=== PATIENT | female | born 1950 | race Caucasian/White ===

== ENCOUNTER 2016-03-24 11:26 | Outpatient (CLI) | payer MEDICARE, BC ==
[2012-05-16 11:11] VITALS: BP 126/74
[2016-03-24 12:04] LABS: BASOPHILS % 0.3 (0.0-1.5); EOSINOPHILS % 2.5 % (0.0-6.8); MEAN CORPUSCULAR HEMOGLOBIN 30.7 pg (28.0-34.0); MONOCYTES # 0.2 # k/uL (0.0-0.9); MONOCYTES % 3.6 % (0.0-11.0); NEUTROPHILS # 4.1 # k/uL (1.4-7.7)
--- NOTE | 2016-03-24 15:00 | Diagnostic Imaging Report ---
[facility] [address] [facility].[address] [address] Report Submission Date: Mar 24, 2016 1:05:51 PM BUILDING CONSULTANT Patient Study Name: FELIX BISWAS Date: Mar 24, 2016 11:57:41 AM BUILDING CONSULTANT Modality Type: CR Gender: F Description: PELVIS : 48 Institution: [facility] Physician PEDRO NAVARRO - OP AP pelvis HISTORY: Pain after fall FINDINGS: Atherosclerotic calcifications are observed. The osseous pelvis is otherwise intact without fracture, dislocation, arthropathy, or focal bone lesion. Electronically signed on Mar 24, 2016 1:05:51 PM BUILDING CONSULTANT by: Ezio ALCOCER
[2016-03-24 22:11] LABS: TOTAL PROTEIN 7.2 g/dL (6.0-8.5)
== END 2016-03-24 11:30 ==
LOC: LAB 11:26
PROVIDERS: ATTEND Family Medicine
DX: M25.552 Pain in left hip (principal); W19.XXXS Unspecified fall, sequela; E78.2 Mixed hyperlipidemia; E11.9 Type 2 diabetes mellitus without complications; E03.9 Hypothyroidism, unspecified; R30.0 Dysuria
CPT/HCPCS: 36415; 72170; 80053; 80061; 83036; 84443; 85025; 87088; 87186

== ENCOUNTER 2016-05-21 10:01 | Outpatient (CLI) | payer MEDICARE, BC ==
[2012-05-16 11:11] VITALS: BP 126/74
[2016-05-21 10:24] LABS: BASOPHILS % 0.3 (0.0-1.5); EOSINOPHILS % 0.4 % (0.0-6.8); LYMPHOCYTES # 0.6 # k/uL (0.6-4.0); MEAN CORPUSCULAR HEMOGLOBIN 31.8 pg (28.0-34.0); MONOCYTES # 0.3 # k/uL (0.0-0.9); MONOCYTES % 3.1 % (0.0-11.0); NEUTROPHILS # 9.2 # k/uL (1.4-7.7)
== END 2016-05-21 10:02 ==
LOC: LAB 10:01
PROVIDERS: ATTEND Family Medicine
DX: D50.9 Iron deficiency anemia, unspecified (principal)
CPT/HCPCS: 36415; 85025

== ENCOUNTER 2016-06-16 11:30 | Outpatient (CLI) | payer MEDICARE, BC ==
[2012-05-16 11:11] VITALS: BP 126/74
== END 2016-06-16 11:32 ==
LOC: LAB 11:30
PROVIDERS: ATTEND Family Medicine
DX: R30.0 Dysuria (principal)
CPT/HCPCS: 87086; 87186

== ENCOUNTER 2017-06-22 09:38 | Outpatient (CLI) | payer MEDICARE, BC ==
[2012-05-16 11:11] VITALS: BP 126/74
[2017-06-22 10:43] LABS: eGFR (Non-African) 37
[2017-06-22 10:49] LABS: MEAN CORPUSCULAR HEMOGLOBIN 31.2 pg (28.0-34.0); MEAN CORPUSCULAR VOLUME 92.4 fl (80.0-100.0)
--- NOTE | 2017-06-22 12:46 | Diagnostic Imaging Report ---
Report Submission Date: Jun 22, 2017 12:05:04 PM CDT Patient Study Name: FELIX BISWAS Date: Jun 22, 2017 10:54:02 AM CDT Modality Type: CT\SR Gender: F Description: CT ABD PELVIS W/O CO : 48 Institution: [facility] Physician: PEDRO NAVARRO - LEANA Examination: CT Abdomen/pelvis History: PT C/O ABDOMEN PAIN FOR ABOUT 2-3 WEEKS. (Hx) Comparison exams: None available Technique: CT Abdomen/pelvis without IV protocol. Findings: Liver, spleen, adrenals, pancreas, and kidneys are without gross irregularity given exam technique. Few splenic granuloma. Gallbladder not visualized. No suspicious renal calcifications. Ureters are nondilated in their course through the abdomen and pelvis. No central calcifications. Bladder margin within normal limits. Abdominal aorta without aneurysm. Scattered peripheral atherosclerotic disease. Cardiac silhouette is not enlarged. No pericardial effusion. Bowel unopacified limiting evaluation. No abnormal dilation. Stool within the large bowel limiting sensitivity. No mesenteric inflammatory changes or free fluid. Appendix not visualized. Hiatal hernia. Thickened distal esophagus. Osseous structures demonstrate scattered degenerative spurring. Lung bases without infiltrate. No effusion. Impression: No abdominal mass or acute inflammatory process. No abnormal bowel dilation or inflammation. Moderate stool throughout the large bowel - constipation. Hiatal hernia. Thickened distal esophagus - evaluate as warranted No suspicious renal calcifications or abnormal ureteric dilation. No lung base consolidation or effusion. Electronically signed on Jun 22, 2017 12:05:04 PM CDT by: Dimitri ALCOCER
== END 2017-06-22 09:40 ==
LOC: LAB 09:38
PROVIDERS: ATTEND Family Medicine
DX: R10.32 Left lower quadrant pain (principal); D64.9 Anemia, unspecified; E11.8 Type 2 diabetes mellitus with unspecified complications
CPT/HCPCS: 36415; 74176; 80048; 83036; 85027

== ENCOUNTER 2018-04-13 11:30 | Outpatient (CLI) | payer MEDICARE, BC ==
[2012-05-16 11:11] VITALS: BP 126/74
[2018-04-13 11:56] LABS: MEAN CORPUSCULAR HEMOGLOBIN 30.3 pg (28.0-34.0)
[2018-04-13 11:57] LABS: BASOPHILS % 0.4 (0.0-1.5); EOSINOPHILS % 2.8 % (0.0-6.8); MONOCYTES % 3.8 % (0.0-11.0); NEUTROPHILS # 5.2 # k/uL (1.4-7.7)
== END 2018-04-13 11:33 ==
LOC: LAB 11:30
PROVIDERS: ATTEND Family Medicine
DX: D50.9 Iron deficiency anemia, unspecified (principal)
CPT/HCPCS: 36415; 82728; 83540; 83550; 85025

== ENCOUNTER 2018-11-08 14:17 | Inpatient (IN) | payer MEDICARE, BC ==
[2018-11-08] MEDS ORDERED: 0.9 % SODIUM CHLORIDE 1,000 ML IV ONE ×2 (14:38→14:39)
[2018-11-08] MEDS ORDERED: ONDANSETRON HCL/PF 4 MG/ 2ML VIAL IVP ONE (14:39)
[2018-11-08 14:50] LABS: BASOPHILS % 0.3 % (0.0-1.5); NEUTROPHILS # 5.4 # k/uL (1.4-7.7)
[2018-11-08 15:00] LABS: eGFR (Non-African) 14
--- NOTE | 2018-11-08 15:00 | ED Physician Documentation ---
Nausea/Vomiting/Diarrhea - HISTORIAN Historian: patient - HPI Chief Complaint: General Adult Additional Information: Patient is a 68 year old female who presents to the ER with c/o not feeling well. Patient states sx's started 4 days ago (Wednesday)- she was at a [employer] retreat; after lunch she developed some chills; went home and slept; fever went up to 102. Yesterday she did not have fever but had 4 episodes of diarrhea; today she denies any fever, vomiting or diarrhea; today she just feels dizzy from dehydration. Onset: days ago Duration: gradual Timing: gradual onset, still present Context: denies: out of country travel, bad food Severity: moderate - Associated Symptoms Diarrhea: watery Abdominal Pain: none - ROS CONST: recent illness (started 4 days ago with fever), fever, chills (started 4 days ago; afebrile > 24 hours) CVS/RESP: denies: chest pain, shortness of breath, cough GI/: dark urine (has only voided a couple of times in 24 hours) EYES/ENT: none MS/SKIN/LYMPH: denies: rash NEURO/PSYCH: headache (frontal) - PAST HX Past History: diabetes Type 2 (with insulin), other (anemia) Other History: hypertension, other (hypothyroid) Surgeries/Procedures: cholecystectomy, hysterectomy, other (MRSA to the neck, tonsillectomy, D&C) Immunizations: UTD Allergies/Adverse Reactions: Allergies Allergy/AdvReac Type Severity Reaction Status Date / Time morphine Allergy Verified 11/08/18 16:23 - SOCIAL HX Smoking History: non-smoker Alcohol Use: none Drug Use: none - FAMILY HX Family History: none - VITAL SIGNS Vital Signs: Vital Signs Temp Pulse Resp BP Pulse Ox 96.9 F L 88 16 109/70 96 11/08/18 16:26 11/08/18 16:46 11/08/18 16:46 11/08/18 16:46 11/08/18 16:46 - REVIEWED ASSESSMENTS Nursing Assessment Reviewed: Yes Vitals Reviewed: Yes Progress - Progress Progress: 16:10 Dr. Montes in to see patient; accepted inpatient admission 16:50 Patient has not yet voided; report to [facility] to collect urine ED Results Lab/Radiology - Lab Results Lab Results: Lab Results 11/08/18 11/08/18 14:48 14:48 WBC 8.60 K/ul K/ul (4.00-12.00) RBC 2.96 M/ul L M/ul (3.90-5.20) Hgb 9.2 g/dL L g/dL (11.5-16.0) Hct 26.7 % L % (34.5-46.5) MCV 90.0 fl fl (80.0-100.0) MCH 31.0 pg pg (28.0-34.0) MCHC 34.3 g/dL g/dL (30.0-36.0) RDW 12.3 % % (11.3-14.3) Plt Count 312 K/mm3 K/mm3 (130-400) Neut % (Auto) 62.9 % % (39.0-79.0) Lymph % (Auto) 23.9 % % (16.0-50.0) [place] % (Auto) 10.5 % % (0.0-11.0) Eos % (Auto) 2.4 % % (0.0-6.8) Baso % (Auto) 0.3 % % (0.0-1.5) Neut # (Auto) 5.4 # k/uL # k/uL (1.4-7.7) Lymph # (Auto) 2.1 # k/uL # k/uL (0.6-4.0) [place] # (Auto) 0.9 # k/uL # k/uL (0.0-0.9) Eos # (Auto) 0.2 # k/uL # k/uL (0.0-0.6) Baso # (Auto) 0.0 # k/uL # k/uL (0.0-0.5) Sodium 138 mmol/L mmol/L (137-145) Potassium 3.9 mmol/L mmol/L (3.5-5.1) Chloride 96 mmol/L L mmol/L (98-107) Carbon Dioxide 26 mmol/L mmol/L (22-30) Anion Gap 19.9 BUN 52 mg/dL H mg/dL (7-17) Creatinine 3.48 mg/dL H mg/dL (0.52-1.04) Est GFR ( Amer) 17 L (60 - ) Est GFR (Non-Af Amer) 14 L (60 - ) Glucose 57 mg/dL L mg/dL (74-106) Calcium 8.2 mg/dL L mg/dL (8.4-10.2) Total Bilirubin 0.5 mg/dL mg/dL (0.2-1.3) AST 78 U/L H U/L (15-46) ALT 38 U/L U/L (13-69) Alkaline Phosphatase 96 U/L U/L (38-126) Total Protein 7.9 g/dL g/dL (6.3-8.2) Albumin 4.0 g/dL g/dL (3.5-5.0) Lipase 295 U/L U/L (23-300) - Orders Orders: ED Orders Category Date Time Status Place IV Lock 1T Care 11/08/18 14:39 Active CBC/PLATELET/DIFF Routine Lab 11/08/18 14:48 Completed CMP Routine Lab 11/08/18 14:48 Completed LIPASE Stat Lab 11/08/18 14:48 Completed URINALYSIS Routine Lab 11/08/18 14:39 Ordered 0.9 % Sodium Chloride [Normal Saline] 1,000 ml Med 11/08/18 14:38 Discontinued IV .STK-MED 0.9 % Sodium Chloride [Normal Saline] 1,000 ml Med 11/08/18 14:39 Discontinued IV Q1H Chem Sticks Med 11/08/18 14:40 Discontinued 1 each MC NOW ONE Ondansetron HCl/Pf [Zofran] Med 11/08/18 14:39 Discontinued 4 mg IVP NOW ONE Nausea Physical Exam - EXAM General Appearance: mild distress (weakness) EENT: eye inspection normal, ENT inspection normal, pharynx normal, NAUN, dry mucous membranes Neck: supple Respiratory: breath sounds normal CVS: heart sounds normal, tachycardia Abdomen: tenderness (mild tenderness ) Back: non-tender Skin: warm/dry, pallor Extremities: non-tender, normal range of motion Neuro/Psych: oriented X3, CN's nml as tested, motor nml, sensation nml, mood/affect nml, cognition normal, other (weakness, dizziness with position changes) Discharge Clincal Impression: Acute renal failure, Dehydration symptoms, Hypoglycemia Condition: Stable Disposition: ADMITTED INPATIENT Decision to Admit: [id number] Decision Time: 16:45
[2018-11-08] MEDS ORDERED: ONDANSETRON HCL/PF 4 MG/ 2ML VIAL IVP PRN (16:34)
--- NOTE | 2018-11-08 16:34 | History and Physical Report ---
History of Present Illnes - History of Present Illness Reason for Visit: Weakness History of Present Illness: Patient presented to the ER with weakness. 4 days ago she got chills and fatigue. Developed 102 temp. The next day started have profuse diarrhea - 4-5 episodes. No vomiting. Fever resolved. now with diarrhea. Today patient noted feeling weak and light headed. In the ER patient found to have CR 3.4 (baseline a month ago 1.7) and BS 57. She has a h/o IDDM - A1C last month was 9.9. She has been unable to eat much or drink much. Had 2 fish strips last night then now in ER had a chicken sandwich. - Past Medical History Cardiac: HTN Gastrointestinal: Other (GAstroparesis) Heme/Onc: Iron deficiency anemia (recently worked up by Hematology - secondary to CRF) Renal/: Chronic renal insuff, Acute renal failure Endocrine: Diabetes (with retinopathy) - Past Surgical History Past Surgical History: Cholecystectomy, Hysterectomy (with BSO) - Past Social History Smoke: No Alcohol: None Drugs: None Lives: With Family - Health Maintenance Health Maintenance: Influenza Vaccine, Pneumococcal Vaccine, Mammogram, Colonoscopy Influenza Vaccine: Current for this Influenza Season Pneumonia Vaccine: Yes Resuscitation Status: full Review of Systems - Review of Systems Constitutional: Fever, Chills, Weakness Eyes: negative: pain ENT: negative: Ear Pain, Nose Pain, Nose Discharge Respiratory: negative: Cough, Shortness of Breath Cardiovascular: negative: Chest Pain Gastrointestinal: Nausea, Diarrhea. negative: Vomiting, Abdominal Pain, Melena Genitourinary: negative: Dysuria, Frequency, Incontinence Musculoskeletal: negative: Back Pain Skin: negative: Rash Neurological: Weakness - Medications/Allergies Allergies/Adverse Reactions: Allergies Allergy/AdvReac Type Severity Reaction Status Date / Time morphine Allergy Verified 11/08/18 16:23 Exam - Exam Vital Signs: Vital Signs (72 hours) 11/08/18 16:26 Temperature 96.9 F L Pulse Rate [ 76 Right Pulse ox] Respiratory 18 Rate Blood Pressure 80/55 [Left Arm] O2 Sat by Pulse 98 Oximetry General: Alert, Oriented to Person, Oriented to Place, Oriented to Time, Cooperative, No acute distress HEENT: Atraumatic, PERRLA, EOMI. No: Mouth Mucous membr. moist/[place] Neck: Normal Range of Motion Lungs: Clear to auscultation, Normal air movement, Speaks full Sentences Cardiovascular: Regular rate Abdomen: Normal bowel sounds, Soft, No tenderness Integumentary: Decreased Turgor Extremities: No edema Neurological: Generalized Weakness Psych/Mental Status: Mental status NL, Mood NL, Appropriate Affect, Intact Judgment - Laboratory Results Laboratory Results: Laboratory Results 11/08/18 11/08/18 14:48 14:48 WBC 8.60 RBC 2.96 L Hgb 9.2 L Hct 26.7 L MCV 90.0 MCH 31.0 MCHC 34.3 RDW 12.3 Plt Count 312 Neut % (Auto) 62.9 Lymph % (Auto) 23.9 [place] % (Auto) 10.5 Eos % (Auto) 2.4 Baso % (Auto) 0.3 Neut # (Auto) 5.4 Lymph # (Auto) 2.1 [place] # (Auto) 0.9 Eos # (Auto) 0.2 Baso # (Auto) 0.0 Sodium 138 Potassium 3.9 Chloride 96 L Carbon Dioxide 26 Anion Gap 19.9 BUN 52 H Creatinine 3.48 H Est GFR ( Amer) 17 L Est GFR (Non-Af Amer) 14 L Glucose 57 L Calcium 8.2 L Total Bilirubin 0.5 AST 78 H ALT 38 Alkaline Phosphatase 96 Total Protein 7.9 Albumin 4.0 Lipase 295 Assessment/Plan - Assessment/Plan (1) Diabetes mellitus Status: Acute Current Visit: Yes Qualifiers: Diabetes mellitus type: type 2 Diabetes mellitus ferry terminal agent insulin use: without penitentiary use Diabetes mellitus complication status: with ophthalmic complications Diabetes mellitus complication detail: with diabetic retinopathy Diabetic retinopathy severity: with unspecified retinopathy severity Diabetes mellitus macular edema: macular edema presence unspecified Laterality: unspecified laterality Qualified Code(s): E11.319 - Type 2 diabetes mellitus with unspecified diabetic retinopathy without macular edema Plan: Hold insulin for now due to hypoglycemia. Will give D5 1/2 NS for first liter until good oral intake. (2) Gastroenteritis Status: Acute Current Visit: Yes Plan: Seems resolved. Push diet. (3) Acute renal failure Status: Acute Current Visit: Yes Qualifiers: Acute renal failure type: unspecified Qualified Code(s): N17.9 - Acute kidney failure, unspecified (4) Dehydration symptoms Status: Acute Current Visit: Yes Plan: Suspect due to dehydration from her illness. Hydrate with IVF. Watch for Cr to return to baseline. (5) Hypoglycemia Status: Acute Current Visit: Yes Plan: Accuchecks but hold diabetic meds. VTE Assessment - RISK FACTOR SCORE VTE RISK FACTOR SCORES: AGE OVER 60 YEARS - RISK VTE LOW RISK: SCORE OF 1 OR LESS (RISK PROXIMAL DVT 0.4%) NO PROPHYLAXIS NEEDED
[2018-11-08] MEDS ORDERED: DEXTROSE 5 %-0.45 % SOD CHLORD 1,000 ML IV SCH ×2 (17:00→21:14)
[2018-11-08] MEDS: PANTOPRAZOLE SODIUM 40 MG in SODIUM CHLORIDE 0.9 % (FLUSH) 10 ML IVP SCH (17:40)
[2018-11-08 18:11] VITALS: BMI 37.5
[2018-11-08] MEDS: GABAPENTIN 300 MG CAPSULE PO SCH (21:10)
[2018-11-08] MEDS: FERROUS SULFATE 325 MG TABLET PO SCH (21:10)
[2018-11-09] MEDS ORDERED: ACETAMINOPHEN 500 MG TABLET PO PRN (02:11)
[2018-11-09] MEDS: PANTOPRAZOLE SODIUM 40 MG in SODIUM CHLORIDE 0.9 % (FLUSH) 10 ML IVP SCH ×2 (06:22→16:43)
[2018-11-09] MEDS: LEVOTHYROXINE SODIUM 50 MCG TABLET PO SCH (06:22)
[2018-11-09 06:35] LABS: APPEARANCE,URINE CLEAR (CLEAR); COLOR,URINE YELLOW (YELLOW); OCCULT BLOOD,URINE 1+ (NEGATIVE); PH URINE 5.5 (5.0 - 8.0); UROBILINOGEN URINE 0.2 Eu (0.2-1.0)
[2018-11-09 06:56] LABS: BASOPHILS % 0.4 % (0.0-1.5); NEUTROPHILS # 3.8 # k/uL (1.4-7.7)
[2018-11-09] MEDS: 0.9 % SODIUM CHLORIDE 1,000 ML IV SCH ×2 (07:20→16:52)
[2018-11-09] MEDS ORDERED: INSULIN GLARGINE,HUM.REC.ANLOG 100 UNIT/ML PEN.INJCTR SQ SCH ×2 (09:00→21:00)
[2018-11-09] MEDS ORDERED: ATORVASTATIN CALCIUM 20 MG TABLET PO SCH ×2 (09:00→21:00)
[2018-11-09] MEDS ORDERED: LISINOPRIL 20 MG TABLET PO SCH ×2 (09:00→21:00)
[2018-11-09] MEDS ORDERED: AMITRIPTYLINE HCL 25 MG TABLET PO SCH ×2 (09:00→21:00)
[2018-11-09] MEDS: ENOXAPARIN SODIUM 30 MG/0.3 ML DISP.SYRIN SQ SCH (09:08)
[2018-11-09] MEDS: FERROUS SULFATE 325 MG TABLET PO SCH ×2 (09:08→22:04)
--- NOTE | 2018-11-09 13:29 | Inpatient Progress Note ---
Subjective - Required Recertification Statement I anticipate X number of days because-include discharge plan: 1 - Review of Systems Subjective: Patient feeling stronger. Good appetite. No diarrhea. Objective - Exam Vitals and I&O: Vital Signs Temp 97.8 F 11/09/18 09:11 Pulse 79 11/09/18 10:00 Resp 16 11/09/18 09:11 BP 111/48 11/09/18 09:11 Pulse Ox 100 11/09/18 10:00 Intake & Output 11/08/18 11/09/18 11/09/18 23:59 11:59 23:59 Intake Total 225 1040 Output Total 300 Balance 225 740 Weight 92.986 kg Intake: IV 225 800 Left Antecubital 225 800 Oral 0 240 Output: Urine 300 Other: Voiding Method Toilet Toilet # Bowel Movements 0 General: Alert, Oriented to Person, Oriented to Place, Oriented to Time, Cooperative Lungs: Clear to auscultation, Normal air movement, Speaks full Sentences Cardiovascular: Regular rate - Results Results: Laboratory Results WBC 6.90 K/ul (4.00-12.00) 11/09/18 06:42 RBC 2.56 M/ul (3.90-5.20) L 11/09/18 06:42 Hgb 8.0 g/dL (11.5-16.0) L 11/09/18 06:42 Hct 23.0 % (34.5-46.5) L 11/09/18 06:42 MCV 90.0 fl (80.0-100.0) 11/09/18 06:42 MCH 31.1 pg (28.0-34.0) 11/09/18 06:42 MCHC 34.7 g/dL (30.0-36.0) 11/09/18 06:42 RDW 12.2 % (11.3-14.3) 11/09/18 06:42 Plt Count 243 K/mm3 (130-400) 11/09/18 06:42 Neut % (Auto) 55.5 % (39.0-79.0) 11/09/18 06:42 Lymph % (Auto) 32.5 % (16.0-50.0) 11/09/18 06:42 [place] % (Auto) 8.2 % (0.0-11.0) 11/09/18 06:42 Eos % (Auto) 3.4 % (0.0-6.8) 11/09/18 06:42 Baso % (Auto) 0.4 % (0.0-1.5) 11/09/18 06:42 Neut # (Auto) 3.8 # k/uL (1.4-7.7) 11/09/18 06:42 Lymph # (Auto) 2.3 # k/uL (0.6-4.0) 11/09/18 06:42 [place] # (Auto) 0.6 # k/uL (0.0-0.9) 11/09/18 06:42 Eos # (Auto) 0.2 # k/uL (0.0-0.6) 11/09/18 06:42 Baso # (Auto) 0.0 # k/uL (0.0-0.5) 11/09/18 06:42 Sodium 135 mmol/L (137-145) L 11/09/18 06:42 Potassium 3.7 mmol/L (3.5-5.1) 11/09/18 06:42 Chloride 100 mmol/L (98-107) 11/09/18 06:42 Carbon Dioxide 22 mmol/L (22-30) 11/09/18 06:42 Anion Gap 16.7 11/09/18 06:42 BUN 47 mg/dL (7-17) H 11/09/18 06:42 Creatinine 2.34 mg/dL (0.52-1.04) H 11/09/18 06:42 Estimated Creat Clear 39 11/09/18 06:42 Est GFR ( Amer) 27 (60-) L 11/09/18 06:42 Est GFR (Non-Af Amer) 22 (60-) L 11/09/18 06:42 Glucose 205 mg/dL (74-106) H 11/09/18 06:42 Calcium 7.0 mg/dL (8.4-10.2) L 11/09/18 06:42 Total Bilirubin 0.3 mg/dL (0.2-1.3) 11/09/18 06:42 AST 47 U/L (15-46) H 11/09/18 06:42 ALT 27 U/L (13-69) 11/09/18 06:42 Alkaline Phosphatase 76 U/L (38-126) 11/09/18 06:42 Total Protein 6.2 g/dL (6.3-8.2) L 11/09/18 06:42 Albumin 3.1 g/dL (3.5-5.0) L 11/09/18 06:42 Lipase 295 U/L (23-300) 11/08/18 14:48 Urine Color Yellow (YELLOW) 11/08/18 20:09 Urine Appearance Clear (CLEAR) 11/08/18 20:09 Urine pH 5.5 (5.0 - 8.0) 11/08/18 20:09 Ur Specific [place] 1.015 (1.010-1.030) 11/08/18 20:09 Urine Protein 1+ mg/dL (NEGATIVE) H 11/08/18 20:09 Urine Ketones Negative mg/dL (NEGATIVE) 11/08/18 20:09 Urine Occult Blood 1+ (NEGATIVE) H 11/08/18 20:09 Urine Nitrite Negative (NEGATIVE) 11/08/18 20:09 Urine Bilirubin Negative (NEGATIVE) 11/08/18 20:09 Urine Urobilinogen 0.2 Eu (0.2-1.0) 11/08/18 20:09 Ur Leukocyte Esterase 2+ (NEGATIVE) H 11/08/18 20:09 Urine Glucose Negative mg/dL (NEGATIVE) 11/08/18 20:09 Assessment/Plan - Assessment/Plan (1) Diabetes mellitus Status: Acute Current Visit: Yes Qualifiers: Diabetes mellitus type: type 2 Diabetes mellitus terminal make up operator insulin use: without terminal make up operator use Diabetes mellitus complication status: with ophthalmic complications Diabetes mellitus complication detail: with diabetic retinopathy Diabetic retinopathy severity: with unspecified retinopathy severity Diabetes mellitus macular edema: macular edema presence unspecified Laterality: unspecified laterality Qualified Code(s): E11.319 - Type 2 diabetes mellitus with unspecified diabetic retinopathy without macular edema Plan: Restart insulin today. Hold off glipizide due to hypoglycemia and metformin due to ARF. (2) Gastroenteritis Status: Acute Current Visit: Yes Plan: resolved. (3) Acute renal failure Status: Acute Current Visit: Yes Qualifiers: Acute renal failure type: unspecified Qualified Code(s): N17.9 - Acute kidney failure, unspecified Plan: Improving. Continue IV NS today. Anticipate D/C tomorrow. (4) Dehydration symptoms Status: Acute Current Visit: Yes (5) Hypoglycemia Status: Acute Current Visit: Yes
[2018-11-09] MEDS: GABAPENTIN 300 MG CAPSULE PO SCH (22:04)
[2018-11-10] MEDS: 0.9 % SODIUM CHLORIDE 1,000 ML IV SCH (02:34)
[2018-11-10] MEDS: PANTOPRAZOLE SODIUM 40 MG in SODIUM CHLORIDE 0.9 % (FLUSH) 10 ML IVP SCH (06:36)
[2018-11-10] MEDS: LEVOTHYROXINE SODIUM 50 MCG TABLET PO SCH (06:36)
[2018-11-10 06:49] LABS: BASOPHILS % 0.2 % (0.0-1.5); NEUTROPHILS # 3.2 # k/uL (1.4-7.7)
--- NOTE | 2018-11-10 08:18 | Discharge Summary ---
Discharge Summary - Discharge [facility] Admission Date: 11/08/18 Discharge Date: 11/10/18 Discharge To: Home History of Present Illness: Patient presented to the ER with weakness. 4 days ago she got chills and fatigue. Developed 102 temp. The next day started have profuse diarrhea - 4-5 episodes. No vomiting. Fever resolved. now with diarrhea. Today patient noted feeling weak and light headed. In the ER patient found to have CR 3.4 (baseline a month ago 1.7) and BS 57. She has a h/o IDDM - A1C last month was 9.9. She has been unable to eat much or drink much. Had 2 fish strips last night then now in ER had a chicken sandwich. Condition at Discharge: Stable Consultations this Visit: None Procedures this Visit: None Allergies/Adverse Reactions: Allergies Allergy/AdvReac Type Severity Reaction Status Date / Time morphine Allergy Verified 11/08/18 16:23 Patient Problems: Current Active Problems Problem Status Onset Acute renal failure Acute Dehydration symptoms Acute Diabetes mellitus Acute Gastroenteritis Acute Hypoglycemia Acute Discharge Summary: Patient was admitted for IV hydration for acute on chronic renal failure from dehydration after gastroenteritis. Appetite improved while here. BS went from 57 on admission to 220 on discharge (A1C 10/17 was 9.9). Insulin was restarted on day 2 of admission. Glipizide and metformin will be restarted at home as her CR improved from 3.5 to 1.6 (her baseline) prior to discharge. Hgb dropped from 8 to 7.1 after 2 days of IVF - suspect dilutional. She just had a work up by hematology last 2 weeks and diagnosed with anemia of chronic disease. Recheck in 3-4 days as outpatient. Discharged home in good condition. Hospital Course: Discharge Dx. Dehydration from gastroenteritis resulting in Acute on chronic renal failure. Uncontrolled DM with complications - nephropathy, retinopathy, neuropathy. Anemia of chronic disease
[2018-11-10] MEDS: ENOXAPARIN SODIUM 30 MG/0.3 ML DISP.SYRIN SQ SCH (08:38)
[2018-11-10] MEDS: FERROUS SULFATE 325 MG TABLET PO SCH (08:38)
[2018-11-10 14:26] VITALS: BP 159/79
== END 2018-11-10 14:20 | disposition home or self-care (01) | DRG 641 ==
LOC: ED 14:17 → SOUTH 16:12
PROVIDERS: ADMIT Family Medicine; ATTEND Family Medicine
DX: E86.0 Dehydration (principal); N17.9 Acute kidney failure, unspecified; K52.9 Noninfective gastroenteritis and colitis, unspecified; E11.649 Type 2 diabetes mellitus with hypoglycemia without coma; E11.22 Type 2 diabetes mellitus with diabetic chronic kidney disease; N18.9 Chronic kidney disease, unspecified; E11.43 Type 2 diabetes mellitus with diabetic autonomic (poly)neuropathy; K31.84 Gastroparesis; D50.9 Iron deficiency anemia, unspecified; E03.9 Hypothyroidism, unspecified; D63.1 Anemia in chronic kidney disease; E11.21 Type 2 diabetes mellitus with diabetic nephropathy; E11.319 Type 2 diabetes mellitus with unspecified diabetic retinopathy without macular edema; E11.40 Type 2 diabetes mellitus with diabetic neuropathy, unspecified; Z88.5 Allergy status to narcotic agent; Z90.49 Acquired absence of other specified parts of digestive tract; Z90.710 Acquired absence of both cervix and uterus; Z90.79 Acquired absence of other genital organ(s); Z90.722 Acquired absence of ovaries, bilateral; Z79.4 Long term (current) use of insulin; Z79.890 Hormone replacement therapy; Z79.899 Other long term (current) drug therapy
CPT/HCPCS: 80048; 80053; 81002; 83690; 85025; J1650; J2405; J7030; 99218; 99231; S1016; S5010

== ENCOUNTER 2018-11-15 13:39 | Outpatient (CLI) | payer MEDICARE, BC ==
[2018-11-15 14:36] LABS: BASOPHILS % 0.4 % (0.0-1.5); NEUTROPHILS # 6.5 # k/uL (1.4-7.7)
[2018-11-15 14:37] LABS: eGFR (Non-African) 32
== END 2018-11-15 13:42 ==
LOC: LAB 13:39
PROVIDERS: ATTEND Family Medicine
DX: N18.9 Chronic kidney disease, unspecified (principal); D63.1 Anemia in chronic kidney disease
CPT/HCPCS: 36415; 80048; 85025

== ENCOUNTER 2018-12-18 13:53 | Emergency (ER) | payer MEDICARE, BC ==
--- NOTE | 2018-12-18 14:02 | ED Physician Documentation ---
Lower Extremity Problem - HISTORIAN Historian: patient - HPI Stated Complaint: left foot 3rd toe with red and pain Chief Complaint: Foot Injury Location of Injury: L foot Onset: days ago (2) Timing: still present, worse Duration: constant Recent Injury: No Quality: pain, swelling, tenderness Exacerbated By: walking Relieved By: rest Further Comments: yes (states her noticed a red area two days ago and now the area looks more purple and the actual foot and lower leg have redness and pain with a warm feeling. No fever) - ROS CONST: no problems MS/SKIN/LYMPH: leg swelling CVS/RESP: none GI/: none EYES/ENT: none - PAST HX Past History: none PE Risk Factors: none Other History: diabetes Type 2 Allergies/Adverse Reactions: Allergies Allergy/AdvReac Type Severity Reaction Status Date / Time morphine Allergy Verified 12/18/18 14:09 - SOCIAL HX Smoking History: non-smoker Alcohol Use: none Drug Use: none - FAMILY HX Family History: none - VITAL SIGNS Vital Signs: Vital Signs Temp Pulse Resp BP Pulse Ox 98.0 F 94 H 19 142/63 100 12/18/18 14:03 12/18/18 14:03 12/18/18 14:03 12/18/18 14:03 12/18/18 14:03 - REVIEWED ASSESSMENTS Nursing Assessment Reviewed: Yes Vitals Reviewed: Yes ED Results Lab/Radiology - Orders Orders: ED Orders Category Date Time Status FOOT 3 VIEWS OR MORE [RAD] Stat Exams 12/18/18 Completed Lower Extremity Problem - EXAM General Appearance: no distress Foot: right foot: non-tender, normal inspection, normal range of motion, no evidence of injury, left foot: infection, pain Neuro/Tendon: normal sensation EENT: eye inspection normal, no signs of dehydration RESPIRATORY: no resp distress, chest non-tender, breath sounds normal CVS: reg rate & rhythm, heart sounds normal JOINT: joints nml, nml ROM VASCULAR: no vascular compromise NEURO/PSYCH: oriented X3 SKIN: warm/dry, other (left foot with redness and mild swelling - pulses + and cap refill + lateral side of 3rd toe with signfiicant swelling and purple color ) BACK: normal inspection Discharge Clincal Impression: Cellulitis of left foot Referrals: Luma Montes MD [Primary Care Provider] - 2 Days Comments: 1. Bactrim DS take 1 by mouth twice daily x 10 days 2. Referral made to Dr Spain 3. Keep an eye on the area - any increased symptoms notify PCP 4. Return to ER for any increased concerns Condition: Stable Disposition: 01 HOME, SELF-CARE Decision to Admit: NO Date of Decison to Admit: 12/18/18 Decision Time: 15:09
[2018-12-18 14:09] VITALS: BP 142/63
--- NOTE | 2018-12-18 14:50 | Diagnostic Imaging Report ---
PATIENT MR#: [id number] PATIENT PATIENT NAME: FELIX BISWAS DATE OF : 1950 REFERRING PHYSICIAN: Zofia Vazquez EXAM DATE: 12/18/2018 ACCESSION NUMBER: [id number] EXAM DESCRIPTION: FOOT 3 VIEWS OR MORE Exam: Left foot. History: Pain. AP, lateral and oblique view of the left foot are submitted. No signs of fracture or dislocation is seen. No bony erosions are seen. Spur off the plantar surfac e of the calcaneus is noted. Soft tissue swelling over the distal aspect of the 3rd digit is noted. Impression: No acute fracture. Heel spur. Soft tissue swelling over the 3rd digit Read by: Dr. Arun Cheema Transcribed by: Transcribed Date: Electronically signed by: Dr. Arun Cheema Date signed: 12/18/2018 2:49:50 PM
== END 2018-12-18 14:51 | disposition home or self-care (01) ==
LOC: ED 13:53
DX: L03.032 Cellulitis of left toe (principal)
CPT/HCPCS: 73630; 99283; 99284

== ENCOUNTER 2018-12-19 15:02 | Outpatient (CLI) | payer MEDICARE, BC ==
[2018-12-18 14:09] VITALS: BP 142/63
== END 2018-12-19 15:03 ==
LOC: LABRHC 15:02
PROVIDERS: ATTEND Podiatrist Foot & Ankle Surgery
DX: L97.529 Non-pressure chronic ulcer of other part of left foot with unspecified severity (principal)
CPT/HCPCS: 87070; 87186

== ENCOUNTER 2018-12-20 16:25 | Inpatient (IN) | payer MEDICARE, BC ==
--- NOTE | 2018-12-20 16:42 | History and Physical Report ---
History of Present Illnes - History of Present Illness Reason for Visit: L foot infection History of Present Illness: Patient with uncontrolled DM presented to ER 12-18-18 for infected L 3rd toe. She had noted swelling and blister 3 days before. In the ER she was given Bactrim and followed up with Dr. Spain yesterday. She hadn't taken but one dose so he had her come back today to recheck. Wound was worse and redness and swelling had spread into foot. A1C in 10/17 was 9.2. She has a h/o MRSA. No drainage noted. Patient will be admitted to Acute Care for IV antibiotics. - Past Medical History Cardiac: HTN Gastrointestinal: Other (GAstroparesis) Heme/Onc: Iron deficiency anemia (recently worked up by Hematology - secondary to CRF) ENT: Other (retinopathy) Renal/: Chronic renal insuff Endocrine: Diabetes (with retinopathy) - Past Surgical History Past Surgical History: Cholecystectomy, Hysterectomy (with BSO) - Past Family History Mother Family History: CAD Father Family History: DM, - Past Social History Smoke: No Alcohol: None Drugs: None Lives: With Family - Health Maintenance Health Maintenance: Influenza Vaccine, Pneumococcal Vaccine, Mammogram, Colonoscopy Pneumonia Vaccine: Yes Resuscitation Status: Resusciation Status Resuscitation Status Full Code Review of Systems - Review of Systems Constitutional: negative: Fever, Weakness Eyes: negative: pain ENT: negative: Ear Pain, Nose Discharge Respiratory: negative: Cough, Shortness of Breath Cardiovascular: negative: Chest Pain Gastrointestinal: negative: Nausea, Vomiting, Abdominal Pain, Diarrhea, Constipation Genitourinary: negative: Dysuria Musculoskeletal: Foot Pain Skin: negative: Rash Neurological: negative: Weakness - Medications/Allergies Allergies/Adverse Reactions: Allergies Allergy/AdvReac Type Severity Reaction Status Date / Time morphine Allergy Verified 12/18/18 14:09 Current Inpatient Medications: Current Inpatient Medications Amitriptyline HCl (Elavil) 25 mg PO HS SAMIR Stop: 01/19/19 20:59 Atorvastatin Calcium (Lipitor) 20 mg PO DAILY SAMIR Stop: 01/19/19 20:59 Carvedilol (Coreg) 3.15 mg PO BID SAMIR Stop: 01/19/19 20:59 Enoxaparin Sodium (Lovenox) 40 mg SQ DAILY SAMIR Stop: 01/04/19 08:59 Ferrous Sulfate (Feosol) 325 mg PO BID SAMIR Stop: 01/19/19 20:59 Gabapentin (Neurontin) 600 mg PO HS SAMIR Stop: 01/19/19 20:59 Glimepiride (Amaryl) 2 mg PO 0730 SAMIR Stop: 01/20/19 07:29 Hydrochlorothiazide (Hydrodiuril) 12.5 mg PO DAILY SAMIR Stop: 01/20/19 08:59 Piperacillin Sod/Tazobactam (Sod 3.375 gm/ Sodium Chloride) 100 mls @ 200 mls/hr IV Q6 SAMIR Stop: 01/19/19 17:59 Lisinopril (Prinivil) 20 mg PO DAILY SAMIR Stop: 01/20/19 08:59 Miscellaneous (Chem Sticks) 1 each MC CHEMQID SAMIR Stop: 01/19/19 16:59 Miscellaneous (Pharmacy To Dose Vancomycin) 1 each IV NOW SAMIR Stop: 01/19/19 16:59 Miscellaneous (Insulin Degludec [Tresiba Flextouch U-100]) 28 unit SQ DAILY SAMIR Stop: 01/19/19 20:59 Miscellaneous (Levothyroxine Sodium [Levothyroxine Sodium]) 100 mcg PO DAILY SAMIR Stop: 01/20/19 08:59 Miscellaneous (Metformin Hcl [Metformin Hcl]) 1,000 mg PO BID SAMIR Stop: 01/19/19 20:59 Exam - Exam Vital Signs: Vital Signs (72 hours) 12/18/18 12/20/18 12/20/18 15:08 16:37 16:39 Temperature 97.4 F L 97.4 F L Pulse Rate [ 84 84 Right Pulse ox] Respiratory 20 20 Rate Blood Pressure 142/63 Blood Pressure 142/63 154/76 154/76 [Right Arm] O2 Sat by Pulse 100 100 Oximetry General: Alert, Oriented to Person, Oriented to Place, Oriented to Time, Cooperative, No acute distress HEENT: Atraumatic, PERRLA, EOMI, Mouth Mucous membr. moist/[place], Nose Mucous membr. moist/[place] Neck: Normal Range of Motion Lungs: Clear to auscultation, Normal air movement Cardiovascular: Regular rate Abdomen: Normal bowel sounds, Soft, No tenderness Integumentary: Other (L foot with erythema and swelling beyond [place]. 3rd t oe with denuded blister on lateral surface. Tender. ) Extremities: Other (L foot with 3rd toe swollen and erythematous. blister denuded.. Erthyema up into the midforefoot. Tender. 2+ pulses) Neurological: Normal gait, Normal speech, Strength Equal Bilat Psych/Mental Status: Mental status NL, Mood NL, Appropriate Affect, Intact Judgment Assessment/Plan - Assessment/Plan (1) HTN (hypertension) Status: Chronic Current Visit: No Qualifiers: Hypertension type: essential hypertension Qualified Code(s): I10 - Essential (primary) hypertension Plan: Continue lisinopril and carvedilol. (2) CRF (chronic renal failure) Status: Chronic Current Visit: Yes Qualifiers: Chronic kidney disease stage: stage 2 (mild) Qualified Code(s): N18.2 - Chronic kidney disease, stage 2 (mild) Plan: PHarmacy dosing for vancomycine. Await admission labs - may need to decrease lovenox. (3) Cellulitis of left foot Status: Acute Current Visit: No Plan: Patient has failed outpatient treatment and is high risk for infection - uncontrolled DM and h/o MRSA. Will start with vancomycin and zosyn. Culture was sent yesterday when Dr. Spain unroofed her blister. Elevate frequently. Tylenol for pain for right now. Check CBC. Monitor BS. May need SSI due to infection. (4) Diabetes mellitus Status: Chronic Current Visit: Yes Qualifiers: Diabetes mellitus type: type 2 Diabetes mellitus fdc insulin use: without fdc use Diabetes mellitus complication status: with ophthalmic complications Diabetes mellitus complication detail: with diabetic retinopathy Diabetic retinopathy severity: with unspecified retinopathy severity Diabetes mellitus macular edema: macular edema presence unspecified Laterality: unspecified laterality Qualified Code(s): E11.319 - Type 2 diabetes mellitus with unspecified diabetic retinopathy without macular edema VTE Assessment - RISK FACTOR SCORE VTE RISK FACTOR SCORES: AGE OVER 60 YEARS, ACUTE INFECTION OTHER THEN SEPSIS - RISK VTE MODERATE RISK: SCORE OF 2 (RISK PROXIMAL DVT 2-4%) PROPHYAXIS NEEDED
[2018-12-20] MEDS ORDERED: VANCOMYCIN PHARMACY TO DOSE IV SCH (17:00)
[2018-12-20 17:41] LABS: BASOPHILS % 0.3 % (0.0-1.5); NEUTROPHILS # 7.4 # k/uL (1.4-7.7)
[2018-12-20] MEDS ORDERED: VANCOMYCIN HCL 1 GM in 0.9 % SODIUM CHLORIDE 250 ML IV ONE (18:00)
[2018-12-20] MEDS: PIPERACILLIN SODIUM/TAZOBACTAM 3.375 GM in 0.9 % SODIUM CHLORIDE 100 ML IV SCH (18:15)
[2018-12-20] MEDS: CARVEDILOL 6.25 MG TABLET PO SCH (20:44)
[2018-12-20] MEDS: AMITRIPTYLINE HCL 25 MG TABLET PO SCH (20:46)
[2018-12-20] MEDS: GABAPENTIN 300 MG CAPSULE PO SCH (20:46)
[2018-12-20] MEDS: FERROUS SULFATE 325 MG TABLET PO SCH (20:46)
[2018-12-20] MEDS: ATORVASTATIN CALCIUM 20 MG TABLET PO SCH (20:47)
[2018-12-20] MEDS ORDERED: SOUTH LOCK-UP KEY 1 EACH EACH MC ONE (20:49)
[2018-12-20] MEDS: metFORMIN HCl 500 MG TABLET PO SCH (20:49)
[2018-12-20] MEDS: INSULIN GLARGINE,HUM.REC.ANLOG 100 UNIT/ML PEN.INJCTR SQ SCH (20:56)
[2018-12-21] MEDS: PIPERACILLIN SODIUM/TAZOBACTAM 3.375 GM in 0.9 % SODIUM CHLORIDE 100 ML IV SCH ×4 (00:52→17:06)
[2018-12-21] MEDS: LEVOTHYROXINE SODIUM 50 MCG TABLET PO SCH (06:00)
--- NOTE | 2018-12-21 08:15 | Inpatient Progress Note ---
Subjective - Required Recertification Statement I anticipate X number of days because-include discharge plan: 2 - Review of Systems Subjective: Patient feeling fine. Minimal pain. Good appetite. Objective - Exam Vitals and I&O: Vital Signs Temp 97.4 F L 12/21/18 06:00 Pulse 79 12/21/18 07:39 Resp 20 12/21/18 07:39 BP 132/79 12/21/18 06:00 Pulse Ox 98 12/21/18 06:00 Intake & Output 12/20/18 12/20/18 12/21/18 11:59 23:59 11:59 Intake Total 240 360 Balance 240 360 Weight 93.44 kg 95.254 kg Intake: Oral 240 360 Other: Voiding Method Toilet Toilet General: Alert, Oriented to Person, Oriented to Place, Oriented to Time, Cooperative, No acute distress Lungs: Clear to auscultation, Normal air movement Cardiovascular: Regular rate Skin: Other (decreased erythema at foot/toe.) - Results Results: Laboratory Results WBC 10.80 K/ul (4.00-12.00) 12/20/18 17:40 RBC 3.09 M/ul (3.90-5.20) L 12/20/18 17:40 Hgb 9.7 g/dL (11.5-16.0) L 12/20/18 17:40 Hct 27.9 % (34.5-46.5) L 12/20/18 17:40 MCV 90.0 fl (80.0-100.0) 12/20/18 17:40 MCH 31.4 pg (28.0-34.0) 12/20/18 17:40 MCHC 34.8 g/dL (30.0-36.0) 12/20/18 17:40 RDW 13.0 % (11.3-14.3) 12/20/18 17:40 Plt Count 326 K/mm3 (130-400) 12/20/18 17:40 Neut % (Auto) 68.2 % (39.0-79.0) 12/20/18 17:40 Lymph % (Auto) 22.6 % (16.0-50.0) 12/20/18 17:40 Harmon % (Auto) 5.5 % (0.0-11.0) 12/20/18 17:40 Eos % (Auto) 3.4 % (0.0-6.8) 12/20/18 17:40 Baso % (Auto) 0.3 % (0.0-1.5) 12/20/18 17:40 Neut # (Auto) 7.4 # k/uL (1.4-7.7) 12/20/18 17:40 Lymph # (Auto) 2.5 # k/uL (0.6-4.0) 12/20/18 17:40 Harmon # (Auto) 0.6 # k/uL (0.0-0.9) 12/20/18 17:40 Eos # (Auto) 0.4 # k/uL (0.0-0.6) 12/20/18 17:40 Baso # (Auto) 0.0 # k/uL (0.0-0.5) 12/20/18 17:40 Sodium 137 mmol/L (137-145) 12/20/18 17:40 Potassium 4.3 mmol/L (3.5-5.1) 12/20/18 17:40 Chloride 99 mmol/L (98-107) 12/20/18 17:40 Carbon Dioxide 24 mmol/L (22-30) 12/20/18 17:40 Anion Gap 18.3 12/20/18 17:40 BUN 40 mg/dL (7-17) H 12/20/18 17:40 Creatinine 3.23 mg/dL (0.52-1.04) H 12/20/18 17:40 Estimated Creat Clear 28 12/20/18 17:40 Est GFR ( Amer) 18 (60-) L 12/20/18 17:40 Est GFR (Non-Af Amer) 15 (60-) L 12/20/18 17:40 Glucose 191 mg/dL (74-106) H 12/20/18 17:40 Calcium 8.7 mg/dL (8.4-10.2) 12/20/18 17:40 Total Bilirubin 0.3 mg/dL (0.2-1.3) 12/20/18 17:40 AST 26 U/L (15-46) 12/20/18 17:40 ALT 18 U/L (0-35) 12/20/18 17:40 Alkaline Phosphatase 93 U/L (38-126) 12/20/18 17:40 Total Protein 8.4 g/dL (6.3-8.2) H 12/20/18 17:40 Albumin 4.1 g/dL (3.5-5.0) 12/20/18 17:40 Assessment/Plan - Assessment/Plan (1) HTN (hypertension) Status: Chronic Current Visit: Yes Qualifiers: Hypertension type: essential hypertension Qualified Code(s): I10 - Essential (primary) hypertension Plan: Will stop HCTZ given CrCl. WAtch. (2) CRF (chronic renal failure) Status: Chronic Current Visit: Yes Qualifiers: Chronic kidney disease stage: stage 2 (mild) Qualified Code(s): N18.2 - C hronic kidney disease, stage 2 (mild) (3) Cellulitis of left foot Status: Acute Current Visit: No Plan: Improved. Continue IV vanc and zosyn. (4) Diabetes mellitus Status: Chronic Current Visit: Yes Qualifiers: Diabetes mellitus type: type 2 Diabetes mellitus intermodal dispatcher insulin use: without nursing home use Diabetes mellitus complication status: with ophthalmic complications Diabetes mellitus complication detail: with diabetic retinopathy Diabetic retinopathy severity: with unspecified retinopathy severity Diabetes mellitus macular edema: macular edema presence unspecified Laterality: unspecified laterality Qualified Code(s): E11.319 - Type 2 diabetes mellitus with unspecified diabetic retinopathy without macular edema Plan: Stopping metformin due to Cr Cl. Start SSI. (5) Acute renal failure Status: Acute Current Visit: No Qualifiers: Acute renal failure type: unspecified Qualified Code(s): N17.9 - Acute kidney failure, unspecified Plan: Will do IVF to try to get creatinine down. (She came in last month at this Cr darryn with diarrheal illness and responded well to IVF). Dietary consult to discuss renal diet as patient tends to be very noncompliant with meds and diet for her DM. She sees nephrology already.
[2018-12-21] MEDS ORDERED: hydroCHLOROthiazide 25 MG TABLET PO SCH (09:00)
[2018-12-21] MEDS ORDERED: ENOXAPARIN SODIUM 40 MG/0.4 ML DISP.SYRIN SQ SCH (09:00)
[2018-12-21] MEDS: GLIMEPIRIDE 2 MG TABLET PO SCH ×2 (09:20→09:25)
[2018-12-21] MEDS: CARVEDILOL 6.25 MG TABLET PO SCH ×2 (09:21→09:24)
[2018-12-21] MEDS: FERROUS SULFATE 325 MG TABLET PO SCH ×2 (09:21→22:05)
[2018-12-21] MEDS: LISINOPRIL 20 MG TABLET PO SCH (09:21)
[2018-12-21] MEDS: metFORMIN HCl 500 MG TABLET PO SCH (09:23)
[2018-12-21] MEDS: VANCOMYCIN HCL 1 GM in 0.9 % SODIUM CHLORIDE 250 ML IV SCH (09:49)
[2018-12-21] MEDS: ENOXAPARIN SODIUM 30 MG/0.3 ML DISP.SYRIN SQ SCH (09:50)
[2018-12-21] MEDS: 0.9 % SODIUM CHLORIDE 1,000 ML IV SCH ×2 (09:51→22:13)
[2018-12-21] MEDS: INSULIN REGULAR, HUMAN 100 UNIT/ML 10ML VIAL SQ SCH ×3 (12:39→23:52)
[2018-12-21] MEDS: AMITRIPTYLINE HCL 25 MG TABLET PO SCH (22:04)
[2018-12-21] MEDS: ATORVASTATIN CALCIUM 20 MG TABLET PO SCH (22:05)
[2018-12-21] MEDS: GABAPENTIN 300 MG CAPSULE PO SCH (22:05)
[2018-12-21] MEDS: ACETAMINOPHEN 325 MG TABLET PO PRN (22:09)
[2018-12-21] MEDS: INSULIN GLARGINE,HUM.REC.ANLOG 100 UNIT/ML PEN.INJCTR SQ SCH (23:48)
[2018-12-22] MEDS: PIPERACILLIN SODIUM/TAZOBACTAM 3.375 GM in 0.9 % SODIUM CHLORIDE 100 ML IV SCH ×4 (00:15→17:22)
[2018-12-22] MEDS: LEVOTHYROXINE SODIUM 50 MCG TABLET PO SCH (06:32)
[2018-12-22] MEDS: 0.9 % SODIUM CHLORIDE 1,000 ML IV SCH ×3 (09:23→22:22)
[2018-12-22] MEDS: INSULIN REGULAR, HUMAN 100 UNIT/ML 10ML VIAL SQ SCH ×4 (09:26→20:58)
[2018-12-22] MEDS: VANCOMYCIN HCL 1 GM in 0.9 % SODIUM CHLORIDE 250 ML IV SCH (09:27)
[2018-12-22] MEDS: FERROUS SULFATE 325 MG TABLET PO SCH ×2 (09:29→20:49)
[2018-12-22] MEDS: LISINOPRIL 20 MG TABLET PO SCH (09:29)
[2018-12-22] MEDS: CARVEDILOL 6.25 MG TABLET PO SCH ×2 (09:30→20:48)
[2018-12-22] MEDS: ENOXAPARIN SODIUM 30 MG/0.3 ML DISP.SYRIN SQ SCH (09:31)
[2018-12-22] MEDS: ACETAMINOPHEN 325 MG TABLET PO PRN ×2 (09:31→20:48)
--- NOTE | 2018-12-22 11:07 | Inpatient Progress Note ---
Subjective - Required Recertification Statement I anticipate X number of days because-include discharge plan: 1 - Review of Systems Subjective: Patient feels foot is better. Objective - Exam Vitals and I&O: Vital Signs Temp 97.9 F 12/22/18 09:16 Pulse 76 12/22/18 09:16 Resp 18 12/22/18 09:16 BP 128/68 12/22/18 09:16 Pulse Ox 100 12/22/18 09:16 Intake & Output 12/21/18 12/21/18 12/22/18 11:59 23:59 11:59 Intake Total 360 1020 1560 Balance 360 1020 1560 Weight 95.254 kg 95.254 kg 96.162 kg Intake: IV 300 1200 Right Hand 300 1200 Oral 360 720 360 Other: Voiding Method Toilet Toilet Toilet General: Alert, Oriented to Person, Oriented to Place, Oriented to Time, Engineering Secretary perative, No acute distress Lungs: Clear to auscultation Cardiovascular: Regular rate Skin: Other (Decreased erythema in foot. L 3rd toe lateral open wound withouth drainage.) - Results Results: Laboratory Results WBC 10.80 K/ul (4.00-12.00) 12/20/18 17:40 RBC 3.09 M/ul (3.90-5.20) L 12/20/18 17:40 Hgb 9.7 g/dL (11.5-16.0) L 12/20/18 17:40 Hct 27.9 % (34.5-46.5) L 12/20/18 17:40 MCV 90.0 fl (80.0-100.0) 12/20/18 17:40 MCH 31.4 pg (28.0-34.0) 12/20/18 17:40 MCHC 34.8 g/dL (30.0-36.0) 12/20/18 17:40 RDW 13.0 % (11.3-14.3) 12/20/18 17:40 Plt Count 326 K/mm3 (130-400) 12/20/18 17:40 Neut % (Auto) 68.2 % (39.0-79.0) 12/20/18 17:40 Lymph % (Auto) 22.6 % (16.0-50.0) 12/20/18 17:40 [place] % (Auto) 5.5 % (0.0-11.0) 12/20/18 17:40 Eos % (Auto) 3.4 % (0.0-6.8) 12/20/18 17:40 Baso % (Auto) 0.3 % (0.0-1.5) 12/20/18 17:40 Neut # (Auto) 7.4 # k/uL (1.4-7.7) 12/20/18 17:40 Lymph # (Auto) 2.5 # k/uL (0.6-4.0) 12/20/18 17:40 [place] # (Auto) 0.6 # k/uL (0.0-0.9) 12/20/18 17:40 Eos # (Auto) 0.4 # k/uL (0.0-0.6) 12/20/18 17:40 Baso # (Auto) 0.0 # k/uL (0.0-0.5) 12/20/18 17:40 Sodium 140 mmol/L (137-145) 12/22/18 06:50 Potassium 4.6 mmol/L (3.5-5.1) 12/22/18 06:50 Chloride 109 mmol/L (98-107) H 12/22/18 06:50 Carbon Dioxide 22 mmol/L (22-30) 12/22/18 06:50 Anion Gap 13.6 12/22/18 06:50 BUN 36 mg/dL (7-17) H 12/22/18 06:50 Creatinine 2.50 mg/dL (0.52-1.04) H 12/22/18 06:50 Estimated Creat Clear 37 12/22/18 06:50 Est GFR ( Amer) 25 (60-) L 12/22/18 06:50 Est GFR (Non-Af Amer) 20 (60-) L 12/22/18 06:50 Glucose 82 mg/dL (74-106) 12/22/18 06:50 Calcium 8.0 mg/dL (8.4-10.2) L 12/22/18 06:50 Total Bilirubin 0.3 mg/dL (0.2-1.3) 12/20/18 17:40 AST 26 U/L (15-46) 12/20/18 17:40 ALT 18 U/L (0-35) 12/20/18 17:40 Alkaline Phosphatase 93 U/L (38-126) 12/20/18 17:40 Total Protein 8.4 g/dL (6.3-8.2) H 12/20/18 17:40 Albumin 4.1 g/dL (3.5-5.0) 12/20/18 17:40 Assessment/Plan - Assessment/Plan (1) HTN (hypertension) Status: Chronic Current Visit: Yes Qualifiers: Hypertension type: essential hypertension Qualified Code(s): I10 - Essential (primary) hypertension (2) CRF (chronic renal failure) Status: Chronic Current Visit: Yes Qualifiers: Chronic kidney disease stage: stage 2 (mild) Qualified Code(s): N18.2 - Chronic kidney disease, stage 2 (mild) (3) Cellulitis of left foot Status: Acute Current Visit: No Plan: Improving. Will have podiatry see her today. (4) Diabetes mellitus Status: Chronic Current Visit: Yes Qualifiers: Diabetes mellitus type: type 2 Diabetes mellitus care home insulin use: without long chain beamer use Diabetes mellitus complication status: with ophthalmic complications Diabetes mellitus complication detail: with diabetic retinopathy Diabetic retinopathy severity: with unspecified retinopathy severity Diabetes mellitus macular edema: macular edema presence unspecified Laterality: unspecified laterality Qualified Code(s): E11.319 - Type 2 diabetes mellitus with unspecified diabetic retinopathy without macular edema Plan: BS looking great. (5) Acute renal failure Status: Acute Current Visit: No Qualifiers: Acute renal failure type: unspecified Qualified Code(s): N17.9 - Acute kidney failure, unspecified Plan: Improved. Dietary visited with patient yesterday. continue IVF today.
[2018-12-22 17:41] VITALS: BMI 37.5
[2018-12-22] MEDS: ATORVASTATIN CALCIUM 20 MG TABLET PO SCH (20:47)
[2018-12-22] MEDS: GABAPENTIN 300 MG CAPSULE PO SCH (20:47)
[2018-12-22] MEDS: AMITRIPTYLINE HCL 25 MG TABLET PO SCH (20:51)
[2018-12-22] MEDS: INSULIN GLARGINE,HUM.REC.ANLOG 100 UNIT/ML PEN.INJCTR SQ SCH (20:56)
[2018-12-23] MEDS: PIPERACILLIN SODIUM/TAZOBACTAM 3.375 GM in 0.9 % SODIUM CHLORIDE 100 ML IV SCH ×4 (05:45→11:50)
[2018-12-23] MEDS: LEVOTHYROXINE SODIUM 50 MCG TABLET PO SCH (05:48)
[2018-12-23] MEDS: INSULIN REGULAR, HUMAN 100 UNIT/ML 10ML VIAL SQ SCH ×2 (06:52→11:49)
[2018-12-23] MEDS: GLIMEPIRIDE 2 MG TABLET PO SCH (07:25)
[2018-12-23] MEDS ORDERED: VANCOMYCIN HCL 750 MG in 0.9 % SODIUM CHLORIDE 250 ML IV SCH (09:00)
[2018-12-23 09:07] VITALS: BP 159/83
[2018-12-23] MEDS: FERROUS SULFATE 325 MG TABLET PO SCH (09:44)
[2018-12-23] MEDS: CARVEDILOL 6.25 MG TABLET PO SCH (09:45)
[2018-12-23] MEDS: LISINOPRIL 20 MG TABLET PO SCH (09:45)
[2018-12-23] MEDS: ENOXAPARIN SODIUM 30 MG/0.3 ML DISP.SYRIN SQ SCH (09:47)
--- NOTE | 2018-12-23 10:09 | Discharge Summary ---
Discharge Summary - Discharge [facility] Admission Date: 12/20/18 Discharge Date: 12/23/18 Discharge To: Home History of Present Illness: Patient with uncontrolled DM presented to ER 12-18-18 for infected L 3rd toe. She had noted swelling and blister 3 days before. In the ER she was given Bactrim and followed up with Dr. Spain yesterday. She hadn't taken but one dose so he had her come back today to recheck. Wound was worse and redness and swelling had spread into foot. A1C in 10/17 was 9.2. She has a h/o MRSA. No drainage noted. Patient will be admitted to Acute Care for IV antibiotics. Home Medications: Ambulatory Orders Medication Instructions Recorded Amoxicillin/Potassium Clav 1 each PO BID #20 tablet 12/23/18 [Augmentin 875-125 Tablet] Allergies/Adverse Reactions: Allergies Allergy/AdvReac Type Severity Reaction Status Date / Time morphine Allergy Verified 12/18/18 14:09 Patient Problems: Current Active Problems Problem Status Onset CRF (chronic renal failure) Chronic Diabetes mellitus Chronic HTN (hypertension) Chronic Discharge Summary: Patient was admitted for IV vancomycin and zosyn after she failed outpatient antibiotics. She responded well to these and cellulitis greatly improved. Wound cultures grew staph - pansensitive. She will be discharged on augmentin with close follow up with podiatry (who was consulted during admission). Her Cr was back up to 3.5 on admission. IVF brought down to 2.2 which is about her baseline. Metformin was stopped. Patient will need to see nephrology and endocrine in follow up. BS were 100-200 during hospitalzation. Hospital Course: Discharge Dx: L foot cellulitis. uncontrolled DM. Acute re nal failure
[2018-12-23] MEDS: 0.9 % SODIUM CHLORIDE 1,000 ML IV SCH (10:59)
--- NOTE | 2018-12-27 11:03 | CONSULTATION REPORT ---
DATE OF CONSULTATION: 12/22/2018 (Inpatient) REFERRING PHYSICIAN: Luma Montes M.D. HISTORY OF PRESENT ILLNESS: Tammy Mendez is a 68-year-old female who presented to clinic on 12/19/18 after first being seen in the ER I believe the day before, for an infected left third toe. She was placed on antibiotics, she believes it was Bactrim, and admits a history of MRSA (methicillin-resistant Staphylococcus aureus) and came for a follow-up with me on Wednesday. She had a large ulcer that was deroofed and cultured and rinsed out really well and dressed, and she was offered dressing supplies to take home for dressing changes the next few days with the plan to be seen on . She forgot to take the dressings with her and called the following day and asked if she could come pick them up and asked us if we could do the dressing for her. She came in for a nursing visit on Wednesday12/20/18 and I was called in to look at the toe as the foot was more red and erythema was ascending up the leg in the nursing visit. Due to this, discussion was had with Dr. Montes who is the patients primary physician who came and saw the patient and did all the stuff needed for a direct admit for failed outpatient therapy for antibiotics and she was admitted for IV antibiotics. I did not see her as an official visit as it was a nursing visit only that day. Dr. Montes was able to get me on consult and asked that I see her on 12/22/18. She was admitted on 12/20/18 and I saw her on 12/22/18 once the consult was officially placed and she asked me to see her that day. I saw the patient that day and she stated that she was feeling better already on IV antibiotics. She did not admit to any fevers, chills, nausea, vomiting, shortness of breath or chest pain. She was feeling much better so far. She still had the surgical shoe that we dispensed that first day that she was walking around in. The nurses were taking care of dressing changes as I asked to be done the day before. OBJECTIVE: Vascular: DP and PT pulses 2+, left foot. Capillary refill time is less than 3 seconds to the toes of the left foot. There is much less edema noted, left foot, and lower leg. The swelling was only mild at this time. Dermatologic: There is raw tissue still about the lateral, plantar and distal border of the left third toe. There is very minimal erythema hardly noticeable, almost more pink in color at the base of the third toe, left foot. This looks much better than it did the other day. There is very mild to no warmth and there is no malodor, and no purulence noted. There is no probe to bone. The tissue seems to be becoming more healthy, stable and without any obvious signs of necrotic tissue at this time. Musculoskeletal: There is no pain on palpation noted at this time. There are no other gross abnormalities noted, left foot. Neurologic: Light touch sensation is diminished to the toes, left foot. 5.07 [place] Monofilament Test was absent at the distal forefoot and toes, left foot, per previous exam on Wednesday. ASSESSMENT AND PLAN: 1. Type 2 diabetes mellitus with diabetic polyneuropathy unspecified whether superintendent marine oil terminal insulin use; E11.42. 2. Infected blister of third toe of left foot, subsequent encounter. 3. Cellulitis of third toe, left foot; L03.032 almost completely resolved. As the patient has improved greatly on IV antibiotics, I believe that she will be good to go home either on or Wednesday, depending on when Dr. Montes feels comfortable sending her home. I believe she will need to go home on oral antibiotics. Cultures returned as being Staph, susceptible to many antibiotics, not MRSA (methicillin-resistant Staphylococcus aureus). This was discussed with Dr. Montes and encouraged to continue dressing changes and to send her home on likely Augmentin as long as there are no kidney issues, or allergies. The patient also is to follow up with me the following week on , sooner if there are any issues worsening. The patient was grateful for the visit and denies any questions or concerns at this time. We will see the patient next week on for her visit on 12/29/18. I am grateful for the consult to check on this patient after seeing her in clinic, and sending her for direct admit under Dr. Montes. The patient is doing well and we will see her next . Vonda Duffy.P.M. (Dictated/Not Signed) Wenceslao Job#: [id number] & [id number] MTDD
== END 2018-12-23 12:20 | disposition home or self-care (01) | DRG 603 ==
LOC: SOUTH 16:25
PROVIDERS: ADMIT Family Medicine; ATTEND Family Medicine
DX: L03.116 Cellulitis of left lower limb (principal); N17.9 Acute kidney failure, unspecified; E11.43 Type 2 diabetes mellitus with diabetic autonomic (poly)neuropathy; E11.319 Type 2 diabetes mellitus with unspecified diabetic retinopathy without macular edema; E11.22 Type 2 diabetes mellitus with diabetic chronic kidney disease; K31.84 Gastroparesis; I12.9 Hypertensive chronic kidney disease with stage 1 through stage 4 chronic kidney disease, or unspecified chronic kidney disease; D50.9 Iron deficiency anemia, unspecified; B95.8 Unspecified staphylococcus as the cause of diseases classified elsewhere; N18.2 Chronic kidney disease, stage 2 (mild); Z90.49 Acquired absence of other specified parts of digestive tract; Z86.14 Personal history of Methicillin resistant Staphylococcus aureus infection; Z90.710 Acquired absence of both cervix and uterus; Z90.79 Acquired absence of other genital organ(s); Z90.722 Acquired absence of ovaries, bilateral; Z88.5 Allergy status to narcotic agent; Z79.899 Other long term (current) drug therapy; Z79.84 Long term (current) use of oral hypoglycemic drugs; Z91.14 Patient's other noncompliance with medication regimen; Z91.11 Patient's noncompliance with dietary regimen
CPT/HCPCS: 36415; 80048; 80053; 85025; J1650; J1815; J2543; J3370; J7030; J7050; 99222; 99232; 99238; S1016

== ENCOUNTER 2018-12-29 12:36 | Outpatient (CLI) | payer MEDICARE, BC ==
--- NOTE | 2019-01-04 10:23 | OP Clinic Progress Note ---
DATE OF VISIT: 12/29/2018 SUBJECTIVE: Tammy is a 68-year-old female with diabetes mellitus type 2 who recently was admitted in the hospital by direct admission after a clinic a visit with a cellulitic left third toe, going into the foot and leg. The patient was discharged on home oral antibiotics, which we believe was Augmentin. The patient states she is still having a little bit of pain just proximal to the toes on the left foot. She has been doing iodine to the toes every day with a gauze and Dave and Coban dressing. She states that she is still having a little bit of pain near the toes and otherwise, however, is doing quite well. She does not admit to any fevers, chills, nausea, vomiting, shortness of breath or chest pain. She states she still has a little bit of her antibiotics left and she will finish them. OBJECTIVE: Vitals: Temperature 97.7 degrees Fahrenheit, heart rate 84, respiration rate 19, blood pressure 137/80. O2 saturation is 98% on room air. Vascular: 2+ DP and PT pulses, left foot. Capillary refill time is less than 3 seconds to the toes of the left foot. There is still [id number] edema noted in the distal forefoot of the left foot. Dermatologic: There is no erythema noted at this time. There is almost no raw tissue noted at this time. There is good epithelialization over almost the entire third toe, left foot except for a very small portion on the distal tip of the third toe. There was also a very hard prominent callus type area on the lateral aspect of the left third toe, which was debrided down to a superficial bleeding base. The small open wound measured 0.7 x 0.35 cm and the distal tip wound measured 0.7 x 0.35 x 0.1 cm deep. These were both debrided and the distal tip had a good granular base. The patient does not have any erythema or purulence or malodor or any signs of infection noted. There is plenty of loose skin that was debrided down to more healthy normal skin underneath. The third toe is looking fantastic and is almost completely healed except for the distal tip and the slightly open lateral side of the third toe today. Musculoskeletal: There is no pain on palpation noted on the left third toe, but there is slight pain on palpation noted at the distal aspect of the left third metatarsal head region. There is no pain with range of motion of the third metatarsophalangeal joint or second metatarsophalangeal joint. Neurologic: Light touch sensation is diminished to the toes, left foot. A 5.07 [place] monofilament test was absent at the distal forefoot and toes, left foot per previous exam recently. ASSESSMENT AND PLAN: 1. Type 2 diabetes mellitus with diabetic polyneuropathy unspecified whether long-term insulin use, 11.42. 2. Cellulitis of the third toe, left foot, L03.032, completely resolved. The patient is to finish her antibiotics that she was given when leaving the hospital last week. The patient is to continue in her surgical shoe for one more week and then we will see her next week and hopefully get her into a regular at that time as this is almost completely healed. If that third toe distal tip and lesion is not completely healed then we might continue the surgical shoe at that time. We will have the patient return to clinic in one week at the [facility] and look at giving her silicone sleeve for the toe for the dorsal aspect where it is sore at times for her, as well as look at giving her information on a Budin splint. The patient is appreciative about her visits. We will plan on every 3 month visits once this has healed. She does not want any sort of surgery on the hammertoes even though they do bother her. We will continue with every 3 month visits once this does heal and we will also consider an MRI if this pain in the distal forefoot does not subside. We did not see any obvious signs of injury to the bony structures when she had x-rays recently. We may consider x-rays at her next visit, if she is having significant pain. She does not have any bruising, however, so I do not think there was any sort of osseous injury, but rather likely a tendon or ligament strain. We will keep an eye on that with the patient. Rahul Spain D.P.M. /Stefanie [id number] /mab MTDD
== END 2018-12-29 12:46 ==
LOC: POD 12:36
PROVIDERS: ATTEND Podiatrist Foot & Ankle Surgery
DX: E11.43 Type 2 diabetes mellitus with diabetic autonomic (poly)neuropathy (principal)
CPT/HCPCS: 99202; G0463; A4554

== ENCOUNTER 2019-01-19 09:01 | Outpatient (CLI) | payer MEDICARE, BC ==
--- NOTE | 2019-01-24 14:53 | OP Clinic Progress Note ---
DATE OF VISIT: 01/19/2019 SUBJECTIVE: Tammy is a 68-year-old female presenting to the clinic today for follow up of cellulitis of the left third toe. She finished her doxycycline and switched to clindamycin beginning just two or three days ago. She states that she is doing well and without any concerns. She reminded us today that she bleeds just fine throughout the toe with debridement. This was discussed and we are considering arterial Dopplers. The patient most recently had an MRI that was discussed again that was negative for any signs of infection in the bone of the left third toe. The patient presents today for follow up of this and has no questions or concerns except that obviously there is still some redness in the left third toe. She does have chronic renal impairment as well, stage 4. OBJECTIVE: Vitals: Temperature 98.1 degrees Fahrenheit, heart rate 86, respiration rate 18, blood pressure 146/92. O2 saturation is 98% on room air. Vascular: 2+ DP and 1+ PT pulses of the left foot. Capillary refill time is less than 3 seconds to the toes of the left foot. There is mild to moderate edema still noted in the left third toe area. There is not really any redness at all at the distal forefoot near the base of the third toe anymore. Dermatologic: The left third toe still has mild erythema to moderate erythema noted. There is still some swelling there as well. The left third toenail is quite large and sticking out dorsally. This was trimmed down today to consider that the nail could be getting iggy as it is very large and causing some of the redness which I doubt, but we are taking that into consideration by trimming it down, so we can see how it looks next time. There is a mild open wound on the distal aspect of the tip of the left third toe. This was debrided of the hyperkeratotic tissue around the edge down to a measurement of 0.4 x 0.4 x 0.1 cm deep. The patient has no warmth or purulence noted. Musculoskeletal: There is no pain on palpation in the distal aspect of the forefoot near the base of the third toe anymore on the left foot, which is an improvement. The patient also does not have any other gross abnormalities noted except for some digital contractures. The patient's left third toe does have the claw toe deformity where she is putting lots of pressure on the tip of the third toe. She does not have any other gross abnormalities noted. Neurologic: Light touch sensation is absent to the toes, left foot, but intact to the forefoot somehow. ASSESSMENT AND PLAN: 1. Chronic renal impairment stage 4 (severe), N18.4. 2. Type 2 diabetes mellitus with diabetic polyneuropathy unspecified whether snf insulin use, E11.42. 3. Cellulitis of the left third toe, L03.032. PROCEDURE #1: Sharp debridement of the left third toe distal tip ulcer down to and including the subcutaneous tissue layer less than 20 sq cm was performed with a #15 blade today. Minor bleeding was controlled with pressure today. The site was rinsed with a copious amount of normal saline and dressings were applied consisting of triple antibiotic ointment and a Band-Aid. It should be noted that the left third toenail was trimmed as well as toenails one through five. PROCEDURE #2: Toenails one through five of the left foot were trimmed today with nail nippers. We did not look at the right foot, therefore those nails were not trimmed today. I encouraged the patient to obtain crest pads/hammertoe pads to offload the distal tip of the left third toe as soon as possible. She tried finding some at [facility] and was unsuccessful and she refused the ones that we have here that are 40 something dollars from [employer]. She would like to try and purchase some online or go to [employer]. The name of these were given to the patient to obtain. The patient will do this as soon as possible to help get pressure off that left third toe. The patient will likely need surgical correction of the left third toe if we are unable to keep that protected/padded. I am unwilling to do this however while there is still redness to the left third toe. She has only had a couple of days of clindamycin so far and I asked her to continue her clindamycin and we will plan on having her return to clinic in the [facility] on Wednesday next week for followup to make sure that this is improving. If it is not then we will need to consider adjusting her antibiotics for the time that I am gone out of town and then we will consider a more aggressive bone scan to check for infection in the bone if that is not healing the erythema at that time. I am worried that she may have early osteomyelitis despite a negative MRI as she had the infection so recently in the left third toe. The patient has no further questions or concerns and we will see her next week on Wednesday in outpatient clinic. Again we will consider switching her antibiotics at that time and maybe do something like an extended clindamycin with a combination of ciprofloxacin. We will need to adjust having her take ciprofloxacin if we do that at least a couple of hours away from her iron supplements. We encouraged her to begin taking her iron supplements again as she stated she was not, as it hard to take that a couple of hours apart from clindamycin. I never did tell her to stop taking them together, but she was on doxycycline before which did require taking them separately. I told her today she is okay to take clindamycin and the iron at the same time. She has no further questions or concerns and we will see her next week on Wednesday. Rahul Spain D.P.M. /[employer] [id number] /mab MTDD
== END 2019-01-19 09:35 ==
LOC: POD 09:01
PROVIDERS: ATTEND Podiatrist Foot & Ankle Surgery
DX: L03.032 Cellulitis of left toe (principal); E11.42 Type 2 diabetes mellitus with diabetic polyneuropathy; N18.4 Chronic kidney disease, stage 4 (severe)
CPT/HCPCS: 11042; 11719; A4554; G0463

== ENCOUNTER 2019-02-20 13:14 | Outpatient (CLI) | payer MEDICARE, BC ==
--- NOTE | 2019-02-21 17:01 | OP Clinic Progress Note ---
DATE OF VISIT: 02/20/2019 SUBJECTIVE: Tammy is a 69-year-old female presenting to the clinic today for follow-up of left third toe cellulitis. She has been on antibiotics of different varieties for awhile now and we have been having a hard time getting the erythema in her toe to go away. This began as a cellulitis that was quite significant and the tip of her left third toe due to a hammertoe contracture. She has since healed almost completely the left third toe but still has an open lesion that is a problem at this time. She went to see Infectious Disease and the patient states that Infectious Disease suggested that it is just fine and does not need any sort of antibiotics at this time. We will reach out and try and obtain the report from Infectious Disease over at the [facility] to confirm those findings. The patient finished her antibiotics about 2 days ago that I had given her and is no longer taking them. The patient is diabetic with peripheral neuropathy and we are watching her carefully at this time because of that. The patient had an MRI performed also previously that was negative for any signs of osteomyelitis or any other obvious concerns in the area that she is having pain at the left third toe and just proximal to it. The patient does not admit to any fevers, chills, nausea, vomiting, shortness of breath or chest pain. OBJECTIVE: Vitals: Temperature 98.4 degrees Fahrenheit, heart rate 80, respiration rate 16, blood pressure 14297. O2 saturation is 98% on room air. MRI findings review from 01/16/19 of the left third toe: 1) Inflammatory changes and soft tissue swelling around the third toe without osteomyelitis identified by MR criteria. 2) No abscess. 3) Cock-up deformity of the toes. This was read and reported by Sanjeev Flynn M.D. Vascular: Palpable DP and PT pulses, left foot. Capillary refill time is less than 3 seconds to the toes of the left foot. There is still mild edema noted of the left third toe. Dermatologic: The left third toe still has mild red discoloration, especially at the DIPJ area. There is not really any significant warmth at all. There is still mild hyperkeratotic tissue noted at the distal tip of the left third toe which was removed/debrided today revealing still an open lesion with a measurement of 0.6 x 0.3 x 0.2 cm deep. This is slightly larger than previous. The patient did note that she lost her crest pad that she has been using and has not been able to obtain another one. This wound does not probe to bone. There is no undermining, fluctuance or any abnormal drainage at this time. There is no malodor. Musculoskeletal: There is no pain with palpation nor with debridement left third toe. There is still mild pain on palpation noted, however, at the palpation of the left third toe and the left distal forefoot just at the base of the third toe, left foot. There are no other gross abnormalities noted. Neurologic: Light touch sensation is diminished to the toes, left foot. ASSESSMENT AND PLAN: 1. Type 2 diabetes mellitus with diabetic polyneuropathy, unspecified whether correction insulin use; E11.42. 2. Cellulitis of third toe of left foot; L03.032. Upon report from the patient the infectious disease doctor suggested that there was no concern for infection and therefore the patient should stop antibiotics. The patient stopped 2 days ago and she was encouraged by myself as well to continue staying off of her antibiotics and we will see how the toe does. If it seems to worsen and flare up again with obvious infection then I will consider the likelihood that there was latent infection likely in the bone that is not showing up on MRI. If that is the case then I will get it calmed down and then order a 3-phase bone scan with white blood cell labeled technetium scan. At this time, however, we will continue to follow with local wound care seeing her weekly as the patient is able. If the wound continues to improve and heal then we will consider normal local wound care until it is healed without any other further imaging. Return to the clinic in 3 weeks once the patient is back in town. She gets back in town the week I am gone and therefore it will be about 3 weeks until I can see her. If there are any concerns, she knows she needs to go to the emergency room and not wait until I am back. She understands this and we will see her in about 3 weeks. She is to continue regular dressing changes at home with antibiotic ointment and a Band-Aid over that toe. She was encouraged strongly to also get the crest pad happening again and that this is vital to get this healing again. Rahul Spain D.P.M. BEULAH/mab Job#: [id number] MTDD
== END 2019-02-20 13:44 ==
LOC: POD 13:14
PROVIDERS: ATTEND Podiatrist Foot & Ankle Surgery
DX: E11.42 Type 2 diabetes mellitus with diabetic polyneuropathy (principal); L03.032 Cellulitis of left toe
CPT/HCPCS: 99213; G0463; A4554